=== PATIENT | female | born 1990 | race Caucasian/White ===

== ENCOUNTER 2018-12-12 19:29 | Emergency (ER) | payer SELFPAY ==
[~2018-12-12] VITALS: Ht 157.5 cm; Wt 95.3 kg
[2018-12-12 19:42] VITALS: Ht 157.5 cm; Wt 95.3 kg
[2018-12-12 21:10] VITALS: BP 118/76
[2018-12-12 21:17] LABS: PLATELET COUNT 313 x10^3mcL (130-400)
[2018-12-12 21:35] LABS: RED CELL DISTRIBUTION WIDTH 15.6 % (11.5-14.5)
[2018-12-12 21:40] LABS: CALCIUM 8.6 mg/dL (8.5-10.1); CARBON DIOXIDE 26.3 mmol/L (21-32); CHLORIDE SERUM 103 mmol/L (98-107); CREATININE SERUM 0.5 mg/dL (0.6-1.0); GFR1 > 60 mL/min; GLUCOSE SERUM 90 mg/dL (74-106); SODIUM SERUM 139 mmol/L (136-145)
[2018-12-12 21:45] LABS: ALBUMIN 3.9 g/dL (3.4-5.0); ALKALINE PHOSPHATASE 92 U/L (46-116); ALT/SGPT 39 U/L (14-59); AST/SGOT 21 U/L (15-37); BILIRUBIN TOTAL 0.21 mg/dL (0.20-1.00); TOTAL PROTEIN, SERUM 8.4 g/dL (6.4-8.2)
== END 2018-12-12 21:10 | disposition home or self-care (01) ==
LOC: EDBD 19:29 → ED 19:29
PROVIDERS: Emergency Medicine
DX: G40.909 Epilepsy, unspecified, not intractable, without status epilepticus (principal)
CPT/HCPCS: 36415; J7030